=== PATIENT | female | born 1940 | race Caucasian/White ===

== ENCOUNTER → 2018-01-30 | Outpatient (CLI) | payer MEDICARE, OTHER ==
[~2018-01-30] MED LIST: ACET650S21 PO; ACID1TAB7 PO; ASPI-496 PO; ATOR-2 PO; BUDE10.22 INH; BUDE10.22 PO; CHOL10002 PO; DICL75TA2 PO; DOCU100T3 PO; DOXY100T PO; ENOX120S5 SQ; FLUT1AER INH; FURO20TA3 PO; HYDR12.53 PO; HYDR12.58 PO; LEVO500T47 PO; LOSA25TA5 PO; METO50TA82 PO; MULT-717 PO; OXYC10TA6 PO; OXYC5TAB3 PO; POTA10TA5 PO; RAMI10CA PO; SIME80TA15 PO; TRAM50TA2 PO
== END | disposition home or self-care (01) ==
LOC: CFH 09:18
PROVIDERS: ATTEND Nurse Practitioner
DX: M19.071 Primary osteoarthritis, right ankle and foot (principal)
CPT/HCPCS: 77002